=== PATIENT | male | born 1945 | race Caucasian/White ===

== ENCOUNTER 2021-01-13 12:34 | Emergency (ER) | payer MEDICARE, BC ==
[~2021-01-13] VITALS: Ht 170.2 cm; Wt 81.7 kg
[~2021-01-13 12:34] MED LIST: ADULT LOW DOSE81 MG PO; AMLODIPINE BESYL5 MG PO; CIPRO500 MG PO; CLARINEX-D 121 EACH PO; DILTIAZEM 24HR240 MG PO; FLAGYL500 MG PO; FLUOXETINE HCL10 M1 PO; GEMFIBROZIL600 MG PO; HYDROXYZINE HCL25 MG PO; KEFLEX500 MG PO; LASIX20 MG PO; LISINOPRIL20 MG PO; METFORMIN HCL500 MG PO; MOTRIN600 MG PO; NORCO 5-325 TA1 EACH PO; OMEPRAZOLE20 MG PO; PERCOCET 5-3251 EACH PO; PERCOCET 7.5-31 EACH PO; PRAVACHOL20 MG PO; PROVENTIL HFA6.7 GM INH; THALITONE15 MG PO; TYLENOL325 MG PO; ZITHROMAX250 MG PO
== END 2021-01-13 16:05 | disposition home or self-care (01) ==
LOC: ED 12:34
DX: R10.32 Left lower quadrant pain (principal); E11.9 Type 2 diabetes mellitus without complications; I10 Essential (primary) hypertension; Z87.891 Personal history of nicotine dependence; Z88.8 Allergy status to other drugs, medicaments and biological substances; Z88.5 Allergy status to narcotic agent; Z79.899 Other long term (current) drug therapy; Z79.82 Long term (current) use of aspirin; Z79.84 Long term (current) use of oral hypoglycemic drugs
CPT/HCPCS: 74177; 80053; 81001; 84132; 85025; 99284-25; Q9967

== ENCOUNTER 2023-12-09 10:09 | Inpatient (IN) | payer MEDICARE, BC ==
[2023-12-09] VITALS (7 sets, daily range): BP systolic 126–157; BP diastolic 75–102
[~2023-12-09] VITALS: Ht 170.2 cm; Wt 76.9 kg
[~2023-12-09 10:09] MED LIST changes: +AMOX TR-K CLV1 EAC1 PO; +GLIMEPIRIDE1 MG PO; +LOSARTAN POTASS25 MG PO
[2023-12-09 10:39] LABS: EOSINOPHILS 0.5 % (0-6); HEMATOCRIT 49.3 % (35.0-50.0); HEMOGLOBIN 16.6 g/dL (12.0-18.0); LYMPHOCYTES 11.2 % (24-44); MCH 29.9 (27-36); MCHC 33.6 g/dl (30-36); MCV 88.8 fl (81-99); MONOCYTES 5.4 % (0-12); NEUTROPHILS 80.9 % (39-80); PLATELET COUNT 186 K/uL (140-440); RBC 5.56 M/ul (4.3-5.7)
[2023-12-09 10:55] LABS: ALBUMIN 3.6 g/dL (3.4-5.0); ALBUMIN/GLOBULIN RATIO 0.72 (1.1-2.4); ANION GAP 21.1 (7-21); BUN/CREATININE RATIO 17.83 (6.0-28.6); CALCIUM 9.9 mg/dL (8.5-10.1); CREATININE, SERUM 1.57 mg/dL (0.70-1.30); MAGNESIUM 1.8 mg/dL (1.8-2.4); POTASSIUM 3.1 mmol/L (3.5-5.1); PROTEIN, TOTAL 8.6 g/dL (6.4-8.2)
[2023-12-09] MEDS ORDERED: dilTIAZem HCL 25 MG/5 ML VIAL IV ONE (11:30)
[2023-12-09] MEDS ORDERED: MAGNESIUM SULFATE 2 GM/50 ML BAG IV ONE (13:00)
[2023-12-09] MEDS ORDERED: ondansetron HCL 4 MG/2 ML VIAL IV PRN (13:00)
[2023-12-09] MEDS ORDERED: DEXTROSE 50% 50 ML SYR IV PRN ×2 (13:00)
[2023-12-09] MEDS ORDERED: VANCOMYCIN HCL 125 MG CAP PO SCH (13:00)
[2023-12-09] MEDS ORDERED: IBLOOD GLUCOSE TEST STRIP 1 EA TEST XX PRN (13:00)
[2023-12-09] MEDS ORDERED: ACETAMINOPHEN 325 MG TAB PO PRN (13:00)
[2023-12-09] MEDS ORDERED: GLUCAGON,HUMAN RECOMBINANT 1 MG/ML VIAL SUB-Q PRN (13:00)
[2023-12-09] MEDS ORDERED: POTASSIUM CHLORIDE 40 MEQ,LIDOCAINE HCL 1% 40 MG in DEXTROSE 5% 500 ML IV ONE (13:00)
[2023-12-09] MEDS ORDERED: DEXTROSE 5% 1,000 ML IV PRN (13:00)
[2023-12-09] MEDS ORDERED: PROCHLORPERAZINE EDISYLATE 10 MG/2 ML VIAL IV PRN (13:00)
--- NOTE | 2023-12-09 13:20 | NUR ---
78 YEAR OLD MALE PATIENT ADMITTED TO CCU FROM ED VIA STRETCHER UNDER DR. KWAN WITH DX OF AFIB/RVR. REPORT RECEIVED FROM ED RN. WITH PATIENT. PATIENT STATES HE HAS BEEN WITH DIARRHEA FOR THE PAST 4 DAYS. VOMITED LAST THURSDAY. UPON ADMIT PATIENT IS AWAKE AND ALERT, COOPERATIVE ON ADMIT. DENIES PAIN. SLIGHT NAUSEA. STATES HE HAS BEEN HAVING INTERMITTENT CHILLS FOR THE PAST 4 DAYS WELL.
--- NOTE | 2023-12-09 14:00 | NUR ---
C/O CHILLING. TEMP-99.2 WILL CONTINUE TO MONITOR. HR 100-115, REMAINS IN AFIB. FAMILY MEMBERS ARE IN ROOM.
[2023-12-09] MEDS ORDERED: TAMSULOSIN HCL0.4 MG PO (14:41)
[2023-12-09] MEDS ORDERED: METFORMIN HCL500 M1 PO (14:41)
[2023-12-09] MEDS ORDERED: FLUOXETINE HCL10 MG PO (14:43)
[2023-12-09] MEDS ORDERED: ATORVASTATIN CA40 MG PO (14:46)
--- NOTE | 2023-12-09 15:00 | NUR ---
UP TO COMMODE TO EXPELL LIQUID GREEN STOOL, 120 ML. STOOL SENT TO LAB. LEGS MOTTLED. PATIENT DENIES SHORTNESS OF BREATH, BP-138/81. HR WITH MOVEMENT UP TO 130 FROM 100 AT REST. DENIES PAIN. BACK TO BED W/O INCIDENT.
--- NOTE | 2023-12-09 16:15 | NUR ---
DR. KWAN HERE TO SEE PATIENT. LEGS ARE NOT MOTTLED AT THIS TIME. DENIES PAIN. TAKING WATER. NO VOMITING.
--- NOTE | 2023-12-09 16:30 | NUR ---
ASSESSMENT DONE. K RIDER INFUSING. IS RESTING. IS NOW IN ISOLATION PRECAUTIONS. THIS EXPLAINED TO PATIENT AND PATIENT .
--- NOTE | 2023-12-09 16:49 | NUR ---
medications reconciled using pharmacy records and interview with
[2023-12-09] MEDS ORDERED: INSULIN LISPRO 100 UNIT/ML ML SUB-Q SCH (17:00)
[2023-12-09] MEDS ORDERED: IBLOOD GLUCOSE TEST STRIP 1 EA TEST VI SCH (17:00)
--- NOTE | 2023-12-09 17:10 | NUR ---
NAPPING, WILL DO ACCUCHECK WHEN PATIENT WAKES.
--- NOTE | 2023-12-09 18:00 | NUR ---
AWAKE.ACCUCHECK 252, 5 UNITS INSULIN GIVEN. UP TO COMMODE TO EXPELL LIQUID GREEN STOOL. VERY WEEK. HR TO 140 WITH EXERTION. LEGS MOTTED WHEN SITTING ON COMMODE.
--- NOTE | 2023-12-09 18:30 | NUR ---
TOOK DINNER POOR. DENIES NAUSEA. HAS BEEN TAKING WATER WITH OUT PROBLEMS. DR. KWAN UPDATED ON PATIENT STATUS REGARDING HR, BP, RR, OUTPUT,K RIDER CONT TO INFUSE. ORDERS RECEIVED.
--- NOTE | 2023-12-09 18:50 | NUR ---
LOPRESSOR GIVEN PER ORDERS. PATIENT IS RESTING WITH HOB ELEVATE.
[2023-12-09] MEDS ORDERED: METOPROLOL TARTRATE 5 MG/5 ML VIAL IV SCH (19:00)
--- NOTE | 2023-12-09 19:02 | NUR ---
PATIENT IS NAPPING. REPORT TO NEXT SHIFT.
--- NOTE | 2023-12-09 19:30 | NUR ---
REPORT RECEIVED FROM DAY RN - PT RESTING IN BED AWAKE WITH AT SIDE. DENIES NEEDS AT THIS TIME. PLAN OF CARE FOR SHIFT REVIEWED, ALL QUESTIONS ANSWERED.
--- NOTE | 2023-12-09 20:26 | NUR ---
ASSESSMENT COMPLETE - PT NOTED TO BE TACHYPNIC WITHOUT COMPLAINTS OF SOB OR CHEST PAIN. PT SLOW TO RESPOND TO QUESTIONS. UNABLE TO COORDINATE MOVEMENTS TO GET OUT OF BED WHEN ATTEMPTING PIVOT TRANSFER TO BSC. REPORTS HE DOES NOT USE AMB AIDS AT HOME AND DISORIENTATION WITH MOVEMENT IS NEW. BED HILL PLACED. GREEN SLIMY STOOL NOTED, NO SKIN BREAKDOWN NOTED. PT REMAINS IN AFIB ON MONITOR WITH RATES 100 WHILE RESTING.
[2023-12-09] MEDS ORDERED: TAMSULOSIN HCL 0.4 MG CAP PO SCH (21:00)
[2023-12-09] MEDS ORDERED: ATORVASTATIN 40 MG TAB PO SCH (21:00)
[2023-12-09] MEDS ORDERED: ENOXAPARIN SODIUM 80 MG/0.8 ML SYR SUB-Q SCH (21:00)
--- NOTE | 2023-12-09 22:11 | NUR ---
PT INC OF STOOL IN ATTENDS, REMAINS GREEN/MUCUS CONSISTENCY WITH STRONG ODOR. INC CARE COMPELTED WITH BARRIER CREAM APPLIED. PT ABLE TO HELP ROLL SIDE TO SIDE FOR BREIF CHANGE WITH INCREASING WEAKNESS FROM LAST CHANGE. PT FALLING ASLEEP QUICKLY AND SLOW TO RESPOND WITH SOME WORD FINDING DIFFICULTY, ORIENTED X4, NO OTHER NEURO DEFICIT NOTED. BED ALARM ON, CALL LIGHT IN REACH.
--- NOTE | 2023-12-09 22:22 | EKG ---
[facility] [address] [place] [address] Signed Atrial fibrillation with rapid ventricular response Nonspecific ST and T wave abnormality Abnormal ECG When compared with ECG of 31-DEC-2021 17:04, Atrial fibrillation has replaced Sinus rhythm Vent. rate has increased BY 49 BPM Nonspecific T wave abnormality now evident in Inferior leads Nonspecific T wave abnormality, worse in Anterolateral leads Confirmed by Ronny Kwan MD () on 12/09/2023 10:22:05 PM Electronically Signed By: RONNY KWAN MD 12/09/232221 PATIENT NAME: CITLALLI MIXON Electrocardiogram DATE OF : 49 PHYSICIAN: RONNY KWAN MD REPORT #: [id number] REPORT IS CONFIDENTIAL AND NOT TO BE RELEASED WITHOUT AUTHORIZATION
[2023-12-10] VITALS (10 sets, daily range): BP systolic 103–144; BP diastolic 56–100
--- NOTE | 2023-12-10 00:46 | NUR ---
RN IN ROOM TO ADMINISTER MEDICATION, PT WAKES EASILY AND REPORTS BEING INC OF STOOL BUT UNABLE TO RECALL HOW TO USE THE CALL LIGHT. NEW ATTENDS PLACED, BARRIER CREAM APPLIED. PT ROLLED TO LEFT SIDE TO SLEEP, BED ALARM ON, CALL LIGHT IN REACH AND ABLE TO RETURN DEMONSTRATE HOW TO USE IT.
[2023-12-10 05:24] LABS: BASOPHILS 0.2 % (0-2); EOSINOPHILS 0.1 % (0-6); HEMATOCRIT 45.6 % (35.0-50.0); HEMOGLOBIN 15.7 g/dL (12.0-18.0); LYMPHOCYTES 13.3 % (24-44); MCHC 34.5 g/dl (30-36); MONOCYTES 8.1 % (0-12); NEUTROPHILS 78.3 % (39-80); PLATELET COUNT 156 K/uL (140-440); RBC 5.25 M/ul (4.3-5.7); RDW 13.9 (10.5-15.0)
[2023-12-10 05:37] LABS: ALBUMIN 3.1 g/dL (3.4-5.0); ALBUMIN/GLOBULIN RATIO 0.67 (1.1-2.4); ANION GAP 19.9 (7-21); BILIRUBIN, TOTAL 0.9 ng/dL (0.2-1.0); BUN/CREATININE RATIO 20.96 (6.0-28.6); CALCIUM 9.3 mg/dL (8.5-10.1); CREATININE, SERUM 1.24 mg/dL (0.70-1.30); MAGNESIUM 2.3 mg/dL (1.8-2.4); PHOSPHORUS, INORGANIC 2.6 mg/dL (2.5-4.9); POTASSIUM 2.9 mmol/L (3.5-5.1); PROTEIN, TOTAL 7.7 g/dL (6.4-8.2)
--- NOTE | 2023-12-10 06:33 | NUR ---
ASSESSMENT THIS MORNING UNCHANGED THROUGH NIGHT. PT WAKES EASILY WITH VOICE BUT DROWSY BETWEEN CARES AND DELAYED ANSWERING QUESTIONS WITH SOME WORD FINDING. HE IS ABLE TO ASSIST WITH TURNS IN BED BUT IS SIGNIFICANTLY WEAK. NUMEROUS LIQUID GREEN SLIMY STOOLS THROUGH NIGHT, PT INCONT OF THESE.
--- NOTE | 2023-12-10 07:15 | NUR ---
PATIENT INCONTINENT OF LIQUID STOOL. BRIEF AND CHUK REPLACED, PATIENT REPOSITIONED ONTO LEFT SIDE FOR ECHO.
--- NOTE | 2023-12-10 07:30 | NUR ---
RECIEVED REPORT FROM LICENSED CHEMICAL SPRAY TECHNICIAN NURSE. PATIENT WAS SLEEPING WHEN I CHECKED ON HIM WHILE TECH WAS DOING HIS ECHOCARDIOGRAM. WIPED DOWN SURFACES IN ROOM WITH BLEACH WIPES. WILL BE IN SOON TO DO BLOOD SUGAR CHECK AND ADMINSTER MEDICATIONS.
--- NOTE | 2023-12-10 07:45 | NUR ---
REPORT RECIEVED FROM PROGRAMMING ENGINEER RN. PATIENT RESTING IN BED AT THIS TIME. PER REPORT PATIENT HAS SLOW PROCESSING OF INFORMATION THROUGH THE NIGHT. PATIENT HAS HAD CONTINUOUS LIQUID STOOL. THIS RN AND ALLIE STUDENT RN WILL BE BE CARING FOR PATIENT.
[2023-12-10] MEDS ORDERED: POTASSIUM CHLORIDE 40 MEQ,LIDOCAINE HCL 1% 40 MG in DEXTROSE 5% 500 ML IV ONE (08:00)
[2023-12-10] MEDS ORDERED: POTASSIUM CHLORIDE 10 MEQ TABCR PO ONE ×2 (08:00→14:45)
--- NOTE | 2023-12-10 08:45 | NUR ---
PATIENT RESTING WITH EYES CLOSES, WOKE TO VOICE/TOUCH. REPOSITIONED FOR BREAKFAST. FACE AND HANDS WASHED. AND DAUGHTER IN ROOM. CALL LIGHT IN EASY REACH.
[2023-12-10] MEDS ORDERED: ENOXAPARIN SODIUM 40 MG/0.4 ML SYR SUB-Q SCH (09:00)
[2023-12-10] MEDS ORDERED: TAMSULOSIN HCL 0.4 MG CAP PO SCH (09:00)
[2023-12-10] MEDS ORDERED: ATORVASTATIN 40 MG TAB PO SCH (09:00)
[2023-12-10] MEDS ORDERED: FLUOXETINE HCL 10 MG CAP PO SCH (09:00)
[2023-12-10] MEDS ORDERED: ENOXAPARIN SODIUM 80 MG/0.8 ML SYR SUB-Q SCH (09:00)
[2023-12-10] MEDS ORDERED: ASPIRIN 81 MG TABEC PO SCH (09:00)
--- NOTE | 2023-12-10 10:57 | NUR ---
ASSISTED PATIENT TO BEDISDE COMMODE WITH WALKER. PATIENT HAD THREE LIQUID STOOLS THIS MORNING. APPLIED BARRIER CREAM. pATIENTIS NOW SITTING UP IN RECLINER WITH IN ROOM.
[2023-12-10] MEDS ORDERED: PHARMACY RENAL DOSE ADJUSTMENT 1 DOSE MISC PO SCH (12:00)
[2023-12-10 14:12] LABS: ANION GAP 18.9 (7-21); BUN/CREATININE RATIO 19.87 (6.0-28.6); CALCIUM 9.8 mg/dL (8.5-10.1); CREATININE, SERUM 1.61 mg/dL (0.70-1.30); POTASSIUM 3.9 mmol/L (3.5-5.1)
--- NOTE | 2023-12-10 14:34 | NUR ---
PER MD SAINZ STAFF MAY PLACE RECTAL TUBE D/T CONTINUOUS LIQUID STOOL. THIS RN PLACED TUBE WITH 30MLS AIR TO GREEN BEVEL. RED DEPRESSED PER INSTRUCTIONS. BLACK STEFANIE AT ANAL ENTRANCE. PATIENT TOLERATED WELL AND STATES "ILL GIVE IT A TRY". PATIENT RESTING IN BED ON HIS SIDE AND IS GOING TO TAKE A NAP AT THIS TIME. PATIENTS BACKAT THE BEDSIDE. LIGHTS TURNED DOWN. BED ALARM ON FOR PATIENTS SAFETY.
[2023-12-10] MEDS ORDERED: SODIUM CHLORIDE 0.9% 1,000 ML IV SCH (14:45)
--- NOTE | 2023-12-10 16:00 | NUR ---
UPDATED MD THAT STAFF HAVE BEEN UNABLE TO ACCOUNT FOR URINATION AMOUNT THROUGH THE SHIFT D/T PATIENTS CONTIUED INCONTINENCE. PATIENT NOW HAS A RECTAL TUBE IN PLACE. WILL MONITOR URINAL OUTPUT. PER PATIENT HAS HAS VOIDED MULTIPLE TIMES IN ATTENDS AND CAMMODE. PATIENTS AT THE BEDSIDE MOST OF THE SHIFT AND UPDATED ON PLAN OF CARE.
--- NOTE | 2023-12-10 16:00 | NUR ---
In to speak with pt and he is sitting on the commode. He requests I speak with . To room outside and completed CM assessment. Pt lives in a 1 story home with 1 step. He does not have issues getting in and out of the home. Per he did have difficulty yesterday and could not lift his foot. 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 He does not use any DME. They try to walk 2 miles per day. 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 No financial issues at this time. is aware of [employer] if help needed. She was an cg and aid for many years. They plan on pt discharging to home when cleared medically.
--- NOTE | 2023-12-10 17:02 | NUR ---
WENT TO ASSESS PATIENTS CBG AND GIVE ANTIBIOTIC AND POTASSIUM REPLACMENT. PATIENT WAS LAYING ON LEFT SIDE AND TALKING TO . REPOSITIONED CLIENT AND CHAINED BREIFS SINCE THERE WAS A LITTLE BIT OF LEAKAGE FROM RECTAL TUBE. ADDED 10ML OF AIR TO RECTAL TUBE SO TOTAL IS NOW 40 ML. GREEN BEVEL UP AND RED IS CURRENTLY DEPRESSED ON RECTAL TUBE. WILL BE IN SOON TO GIVE PATIENT DINNER TRAY AND ADMINISTER INSULIN.
--- NOTE | 2023-12-10 19:30 | NUR ---
REPORT RECEIVED AND CARE ASSUMED FROM ANTELMO PATEL. PT VSS VIA CONTINUOUS MONITOR.
--- NOTE | 2023-12-10 20:07 | NUR ---
SHIFT ASSESSMENT COMPLETE. SEE [employer] FOR DETAILS. PT DENIES PAIN AND OTHER NEEDS. PT RESTING IN BED USING PERSONAL CELLPHONE. PT VERBALIZES UNDERSTANDING TO USE CALL LIGHT WITH NEEDS. PT FOLLOWING COMMANDS AND ANSWERING ORIENTATION QUESTIONS WITH SLIGHT DELAYS IN RESPONSE TIME. PT PLEASANT AND COMMUNICATIVE. IV PATENT WITH MAINTENANCE FLUIDS INFUSING PER ORDER. FLEXISEAL IN PLACE AND DRAINING. CALLL IGHT IN REACH, PERSONAL ITEMS IN REACH. BED IN LOW, LOCKED POSITION WITH BED ALARM ON FOR PT SAFETY. VSS AND NAD NOTED VIA DIRECT OBS, PT STATEMENT AND CONTINUOUS MONITOR.
--- NOTE | 2023-12-10 20:30 | NUR ---
PT T BEDSIDE. PT RECTAL TUBE REMOVED INTAC. PT INCONTINENT WITH SEMI FORMED STOOL. LINENS, BRIEF, GOWN CHANGED. PERICARE COMPLETED WITH NEW BRIEF IN PLACE. PT DENIES ADDITIONAL NEEDS AT THIS TIME. CALL LIGHT IN REACH. BED IN LOW, LOCKED POSITION WITH BED ALARM ON. PT VSS AND NAD NOTED VIA DIRECT OBS, CONTINUOUS MONITOR AND PT STATEMENT.
--- NOTE | 2023-12-10 21:41 | NUR ---
PT USED CALL LIGHT TO CALL FOR BEDPAN. PT STATES " I ALREADY WENT, I CAN'T CONTROL IT". PT REASSURED, BED PAD, AND BRIEF CHANGED FOLLOWING VÍCTOR CARE. PT REQUESTED AND PROVIDED BED HILL FOR NEED TO HAVE ANOTHER BOWL MOVEMENT. PT CARE, CLEANING AND CHANGING COMPLETED AGAIN. PT DENIES ADDITIONAL NEEDS. CALL LIGHT IN REACH. PT DEMONSTRATES APPRORIATE USE OF CALL LIGHT. BED ALARM ON WITH BED IN LOW, LOCKED POSITION. VSS AND NAD NOTED VIA PT STATEMENT, DIRECT OBS AND CONTINUOUS MONITOR.
--- NOTE | 2023-12-10 22:06 | NUR ---
PT CALLED FOR URINAL AND BED HILL. BOTH PROVIDED. PT ABLE TO USE URINAL. PT LINENS, GOWN AND BRIEF CHANGED. VÍCTOR CARE COMPLETE. BED IN LOW, LOCKED POSITION. CALL LIGHT AND PERSONAL ITEMS IN REACH. VSS AND NAD NOTED VIA PT STATEMENT, CONTINUOUS MONITOR AND DIRECT OBS.
--- NOTE | 2023-12-10 23:04 | NUR ---
PT RESTING IN BED WITH EYES CLOSED. PT EASILY AWAKENED TO VOICE. DENIES NEEDS. CALL LIGHT IN REACH. BED IN LOW, LOCKED POSITION WITH BED ALARM ON. VSS AND NAD NOTED VIA DIRECT OBS, CONTINUOUS MONITOR AND PT STATEMENT.
[2023-12-11] VITALS (10 sets, daily range): BP systolic 121–139; BP diastolic 64–104
--- NOTE | 2023-12-11 00:05 | NUR ---
SHIFT ASSESSMENT COMPLETE. SEE [employer] FOR DETAILS. PT RESTING IN BED WITH EYES CLOSED. PT EASILY AWAKENED TO VOICE. PT DENIES NEEDS AT THIS TIME. PT VERBALIZES UNDERSTANDING TO USE CALL LIGHT WITH NEEDS. BED IN LOW, LOCKED POSITION WITH BED ALARM ON. VSS AND NAD NOTED VIA DIRECT OBS, PT STATEMENT AND CONTINUOUS MONITOR.
--- NOTE | 2023-12-11 01:41 | NUR ---
PT RESTING IN BED WITH EYES CLOSED. EASILY AWAKENED TO VOICE. PT BRIEF AND BED PAD CHANGED. PT DENIES NEEDS AT THIS TIME. CALL LIGHT IN REACH. BED ALARM ON. VSS AND NAD NOTED VIA DIRECT OBS, CONTINUOUS MONITOR AND PT STATEMENT.
--- NOTE | 2023-12-11 03:30 | NUR ---
PT REQUESTING ASSIST WITH BEDPAN. PT REMAINS INCONTINENT OF STOOL. PT USING URINAL APPROPRIATELY. PT BEDDING, GOWN AND BRIEF CHANGED. PERICARE COMPLETED. PT STOOLS ARE BROWN AND SOFT, TRANSITIONING FROM LIQUID TO SEMI FORMED. PT PROVIDED ICE WATER AND DENIES ALL ADDITIONAL NEEDS. BED IN LOW, LOCKED POSITION WITH BED ALARM ON. VSS AND NAD NOTED VIS DIRECT OBS, CONTINUOUS MONITOR AND PT STATEMENT.
--- NOTE | 2023-12-11 04:33 | NUR ---
SHIFT ASSESSMENT COMPLETE. SEE [employer] FOR DETAILS. PT RESTING IN BED WITH EYES CLOSED. EASILY AWAKENED TO VOICE. PT DENIES NEES AT THIS TIME. CALL LIGHT AND PERSONAL ITEMS IN REACH. BED IN LOW, LOCKED POSITION WITH BED ALARM ON FOR PT SAFETY. PIV PATENT AND INFUSING. VSS AND NAD NOTED VIA DIRECT OBS, PT STATEMENT AND CONTINUUS MONITOR.
[2023-12-11 05:22] LABS: BASOPHILS 0.4 % (0-2); EOSINOPHILS 0.6 % (0-6); HEMATOCRIT 41.4 % (35.0-50.0); HEMOGLOBIN 14.6 g/dL (12.0-18.0); LYMPHOCYTES 17.6 % (24-44); MCH 30.1 (27-36); MCHC 35.1 g/dl (30-36); MCV 85.6 fl (81-99); MONOCYTES 13.7 % (0-12); NEUTROPHILS 67.7 % (39-80); PLATELET COUNT 152 K/uL (140-440); RBC 4.84 M/ul (4.3-5.7); RDW 13.7 (10.5-15.0)
[2023-12-11 05:37] LABS: ALBUMIN 2.6 g/dL (3.4-5.0); ALBUMIN/GLOBULIN RATIO 0.58 (1.1-2.4); ANION GAP 18.2 (7-21); BILIRUBIN, TOTAL 0.8 ng/dL (0.2-1.0); BUN/CREATININE RATIO 22.4 (6.0-28.6); CALCIUM 9.1 mg/dL (8.5-10.1); CREATININE, SERUM 1.25 mg/dL (0.70-1.30); POTASSIUM 3.2 mmol/L (3.5-5.1); PROTEIN, TOTAL 7.1 g/dL (6.4-8.2)
--- NOTE | 2023-12-11 06:20 | NUR ---
PT BEDDING CHANGED, GOWN AND BRIEF CHANGED. VÍCTOR CARE COMPLETED. PT REQUESTED AND PROVIDED ICE WATER. PT INCONTINENT STOOL BECOMING SOFT FORMED AND BROWN. PT APPROPRIATELY USES URINAL. BED IN LOW, LOCKED POSITION WITH BED ALARM ON. CALL LIGHT IN REACH. VSS AND NAD NOTED VIA PT STATEMENT, DIRECT OBS AND CONTINUOUS MONITOR. UPON LEAVING ROOM PT REQUESTED AND PROVIDED BED HILL. PT REQUESTED A FEW MINUTES OF PRIVACY. PRIVACY GRANTED. PT VERBALIZES UNDERSTANDING TO USE CALL LIGHT WITH NEEDS.
--- NOTE | 2023-12-11 07:09 | NUR ---
PT USED CALL LIGHT FOR HYGEINE FOLLOWING CONTIENT BM AND APPROPRIATE USE OF URINAL. PAD AND BRIEF CHANGED. VÍCTOR CARE COMPLETE. PT DENIES ADDITIONAL NEEDS. CALL LIGHT AND PERSONAL ITEMS IN REACH. BED RETURNED TO LOW, LOCKED POSITION POST CARES. PT SELF REPOSITIONING. PIV PATENT WITH MAINTENANCE FLUIDS INFUSING. PT VSS AND NAD NOTED VIA DIRECT OBS, CONTINUOUS MONITOR AND PT STATEMENT.
--- NOTE | 2023-12-11 07:12 | NUR ---
REPORT GIVEN AND CARE ENDORSED TO DAYSHIFT STAFF. VSS VIA CONTINUOUS MONITOR.
[2023-12-11] MEDS ORDERED: POTASSIUM CHLORIDE 40 MEQ,LIDOCAINE HCL 1% 40 MG in DEXTROSE 5% 500 ML IV ONE (08:15)
--- NOTE | 2023-12-11 09:23 | NUR ---
ADMINISTRED MORNING MEDICATIONS TO PATIENT. PROVIDER CAME IN AND DISCUSSED PLAN OF CARE WITH PATIENT AND FAMILY. ALL QUESTIONS WERE ANSWERED AND PATIENT AND FAMILY WERE AGREEABLE TO THE PLAN OF CARE. BREAKFAST TRAY WAS REMOVED AND CLIENT IS CURRENTLY SITTING UP IN BED. STILL IN ROOM.
[2023-12-11] MEDS ORDERED: METOPROLOL SUCCINATE 25 MG TABCR PO SCH (09:30)
[2023-12-11] MEDS ORDERED: POTASSIUM CHLORIDE 10 MEQ TABCR PO ONE (09:30)
[2023-12-11 11:16] LABS: C. DIFF TOXIN B GENE TCDB,PCR Detected (())
--- NOTE | 2023-12-11 11:38 | NUR ---
CONNECTED WITH FRIEND IN CCU WAITING ROOM. PROVIDED SUPPORTIVE PRESENCE, SOCK LINING EXAMINER EDUCATION, PRAYER. FRIEND EXPRESSED GRATITUDE.
--- NOTE | 2023-12-11 11:57 | NUR ---
PT TRANSFERED TO RM 122 VIA RECLINER. PT DENIES PAIN OR NEEDS AT THIS TIME. ORIENTED TO ROOM, CALL LIGHT AND ISOLATION PRECAUTIONS. PT AND VERBALIZED UNDERSTANDING. CALL LIGHT WITHIN REACH.
[2023-12-11 14:35] LABS: ANION GAP 17.1 (7-21); BUN/CREATININE RATIO 20.76 (6.0-28.6); CALCIUM 9.2 mg/dL (8.5-10.1); CREATININE, SERUM 1.3 mg/dL (0.70-1.30); POTASSIUM 4.1 mmol/L (3.5-5.1)
--- NOTE | 2023-12-11 15:26 | NUR ---
IN PT COMES TO NURSE'S STATION REQUESTING PT BE MOVED TO BED, HE IS TIRED. PT STANDS WITH FWW AND AMBULATES WITHOUT ASSISTANCE TO BED. NEW GOWN PROVIDED. ICE WATER FRESH. CALL LIGHT IN REACH, BED ALARM ON AND BED IN LOWEST POSITION FOR PT SAFETY. NO OTHER NEEDS NOTED AT THIS TIME.
--- NOTE | 2023-12-11 16:24 | NUR ---
NURSING HOME ASSISTANT ASSISTED PATIENT FROM CHAIR TO THE BEDSIDE COMMODE, PATIENT HAD BOWEL MOVEMENT AND BLOOD WAS NOTICED IN PATIENT BRIEF BY NURSING HOME ASSISTANT. RN WAS NOTIFIED OF BLOOD IN PATIENT BRIEF. NURSING HOME ASSISTANT ASSISTED PATIENT OFF COMMODE AND BACK TO THE CHAIR. CALL LIGHT WITHIN REACH, NO FURTHER NEEDS AT THIS TIME.
--- NOTE | 2023-12-11 17:13 | NUR ---
PROVIDED EDUCATION TO PATIENT AND FAMILY REGRADING CONTACT ENTERIC PRECAUTIONS AND PREVENTION. FAMILY VERBALIZED UNDERSTANDING.
--- NOTE | 2023-12-11 19:20 | NUR ---
GOT REPORT FROM DAY SHIFT NURSE.
--- NOTE | 2023-12-11 20:32 | NUR ---
INTO CHECK ON PATIENT. PATIENT GIVEN FRESH WATER, AND NEW IV BAG HUNG. PATIENT IS GOING HOME FOR THE NIGHT. PATIENT HAS CALL LIGHT WITHIN REACH, BED IN LOW POSITION. PATIENT HAD ME TURN THE TV AND LIGHTS OFF SO HE CAN GET SOME REST. PT DENIES ANY OTHER CARES AT THIS TIME.
--- NOTE | 2023-12-11 21:13 | NUR ---
PUMP TESTER DONND PPE AND ENTERED ROOM. PUMP TESTER CHECKED PT BLOOD SUGAR, RN NOTIFIED. PUMP TESTER OBTAINED VITALS AND I&O. PT STATES NO FURTHER NEEDS AT THIS TIME. CALL LIGHT PLACED WITHIN REACH.
--- NOTE | 2023-12-11 21:39 | NUR ---
PATIENT GIVEN EVENING MEDICATIONS AND INSULIN. PATIENT LIGHTS TURNED BACK OFF AND PATIENT IS GOING TO GO BACK TO SLEEP.
--- NOTE | 2023-12-11 22:31 | NUR ---
PATIENT CALLED USING THE CALL LIGHT. PATIENT WOKE UP FROM SLEEPING AND NOTICED HE HAD A BOWEL MOVEMENT. PATIENT UP TO THE BSC AND NEW DEPENDS, GOWN, AND BED WAS CHANGED OUT AND CLEANED UP. PATIENT DOES HAVE BLOOD IN THE BSC BUT NONE WHEN WIPING PATIENT. PATIENT DOES C/O HIS STOMACH WANTING TO CRAMP.
--- NOTE | 2023-12-11 23:55 | NUR ---
PATIENT SLEEPING, REGULAR RESPIRATIONS NOTED.
--- NOTE | 2023-12-12 00:35 | NUR ---
THIS RN RESUMING CARE OF PATIENT. PATIENT RESTING IN BED WITH EYES CLOSED. RESPIRATIONS EVEN AND UNLABORED. CALL LIGHT IN REACH.
[2023-12-12 00:51] VITALS: BP 130/74
--- NOTE | 2023-12-12 01:07 | NUR ---
CALL LIGHT ANSWERED. THIS RN AND SENIOR QUALITY ANALYST DEJA TO ROOM. PATIENT REPORTS NEEDING TO HAVE BM. PATIENT UP TO BSC WITH SBA. PATIENT INCONTINENT OF STOOL IN BRIEF. PATIENT BACK TO BED. PATIENT STATES "AW MAN. I THINK I JUST WENT AGAIN IN MY PANTS". PATIENT BACK UP TO BSC WITH SBA. NEW BRIEFF, FRANCO, AND GOWN IN PLACE. PATIENT SITTING ON BSC, WITH CALL LIGHT IN REACH. THIS RN AND SENIOR QUALITY ANALYST LEFT PATIENT TO HAVE PRIVACY AND HE WAS EDUCATED TO CALL WHEN HE WAS FINSIHED HAVING BM AND READY TO GO BACK TO BED.
--- NOTE | 2023-12-12 01:46 | NUR ---
LICENSED INSURANCE AGENT AND RN DONNED PPE AND ENTERED ROOM. PT DONE ON COMMODE. LICENSED INSURANCE AGENT AND RN ASSISITED PT TO STAND, RN CLEANED PT AND APPLIED BARRIER CREAM. PT ATTENDS CHANGED AND GOWN CHANGED. PT ASSISTED BACK TO BED. PT STATES NO FURTHER NEEDS AT THIS TIME. CALL LIGHT PLACED WITHIN REACH.
--- NOTE | 2023-12-12 03:57 | NUR ---
PATIENT RESTING IN BED ON BACK WITH EYES CLOSED. RESPIRATIONS EVEN AND UNLABORED. CALL LIGHT IN REACH.
[2023-12-12 04:30] VITALS: BP 146/83
--- NOTE | 2023-12-12 04:57 | NUR ---
NOTIFIED PRIMARY RNLANEY REGARDING PT HR SUSTAINED 110'S-120'S. ANTELMO DAVISON TO REVIEW ORDERS AND NOTIFY DR. VALDES FOR PRN IF NOT ON SEP.
--- NOTE | 2023-12-12 05:00 | NUR ---
CALL LIGHT ANSWERED. PATIENT UP TO BSC TO HAVE LOOSE BROWN/BLOODY BM. PATIENT BACK TO BED AFTER VÍCTOR CARE AND BARRIER CREAM APPLIED TO BUTTOX AND SCROTUM. NEW BREIF PLACED. PATIENT HR IN LOW 100s AT REST. WHEN AMBULATING TO BSC AND BEARING DOWN TO VOID, PATIENT HR 110s-120s. VS AND I&Os OBTAINED AND RECORDED. PATIENT HAS NO FURTHER NEEDS. CALL LIGHT IN REACH.
--- NOTE | 2023-12-12 06:10 | NUR ---
MD NOTIFIED ABOUT PATIENT HR IN LOW 100s AT REST AND BETWEEN 110s-120s WITH MOVEMENT AND ON BSC. STATES "WHY ARE ARE CALLING ME ABOUT THIS? I JUST WANT TO HEAR YOUR THOUGHTS BEHIND THIS". THIS RN EXPLAINED JUST WANTED TO UPDATE AND CCU CALLED WITH CONCERNS ABOUT THE ELAVATED HR WITH MOVEMENT. NO NEW ORDERS AT THIS TIME. THIS RN CALLED MD BACK ASKING ABOUT LABS, SINCE PATIENT IS HAVING MULTIPLE LIQUID STOOL DURING THE NIGHT. NEW VERBAL LAB ORDERS. VERIFIED USING REPEAT BACK METHOD.
--- NOTE | 2023-12-12 07:07 | NUR ---
AUTOMOTIVE TECHNICIAN AND RN DONNED PPE AND ANSWERED PT CALL LIGHT. PT NEEDED TO USE BSC. AUTOMOTIVE TECHNICIAN AND RN ASSISTED PT TO BSC. RN LEFT ROOM TO GIVE REPORT. ONCE PT WAS DOONE MATT GUADARRAMA CAME IN TO ASSIST WITH STANDING PT. PT ATTENDS CHANGED AND MATT ASSISTED WITH CLEANING PT. MATT GUADARRAMA ASSISTED PT TO CHAIR. OUTPUT NOTED. PT STATES NO FURTHER NEEDS AT THIS TIME. CALL LIGHT PLACED WITHIN REACH.
[2023-12-12 07:34] LABS: EOSINOPHILS 1.8 % (0-6); HEMOGLOBIN 14.1 g/dL (12.0-18.0)
[2023-12-12 07:37] LABS: BASOPHILS 0.2 % (0-2); HEMATOCRIT 41.6 % (35.0-50.0); LYMPHOCYTES 17.9 % (24-44); MCH 29.7 (27-36); MCHC 33.9 g/dl (30-36); MCV 87.5 fl (81-99); MONOCYTES 15.6 % (0-12); NEUTROPHILS 64.5 % (39-80); PLATELET COUNT 169 K/uL (140-440); RBC 4.75 M/ul (4.3-5.7); RDW 13.9 (10.5-15.0)
[2023-12-12 07:43] LABS: ANION GAP 16.7 (7-21); BUN/CREATININE RATIO 16.81 (6.0-28.6); CALCIUM 8.7 mg/dL (8.5-10.1); CREATININE, SERUM 1.13 mg/dL (0.70-1.30); MAGNESIUM 1.8 mg/dL (1.8-2.4); POTASSIUM 3.7 mmol/L (3.5-5.1)
[2023-12-12 09:11] VITALS: BP 138/91
[2023-12-12] MEDS ORDERED: L. RHAMNOSUS GG/INULIN CAPSULE PO SCH (09:46)
--- NOTE | 2023-12-12 09:48 | NUR ---
Verbal order from Dr. Kline to admin Probiotics po once daily. Order placed at this time.
[2023-12-12 14:44] VITALS: BP 145/78
--- NOTE | 2023-12-12 16:23 | NUR ---
Patient sitting up in chair, alert and oriented x4. Patient continues to have foul smelling green/brown watery stool. Patient has been intcontinent of stool due to urgency. Patient calling staff appropriately. Iv site remains patent, fluids infusing per provider order.
--- NOTE | 2023-12-12 16:30 | NUR ---
of patient saw me, contacted household refrigerator mechanic who requested I visit her . Gave patiend words of encouragement and had prayer. Patient expressed gratefulness.
--- NOTE | 2023-12-12 16:45 | NUR ---
DAIRY MANAGEMENT SPECIALIST ASSISTED PATIENT FROM CHAIR TO COMMODE, PATIENT HAD A LIQUID BOWEL MOVEMENT. BLOOD IN PATIENTS STOOL, RN NOTIFIED BY DAIRY MANAGEMENT SPECIALIST. DAIRY MANAGEMENT SPECIALIST ASSISTED PATIENT FROM COMMODE BACK TO CHAIR. PATIENT ALSO STATED PAIN IN BACK END. RN NOTIFIED. CALL LIGHT WITHIN REACH, NO FURTHER NEEDS AT THIS TIME.
[2023-12-12 17:43] VITALS: BP 154/77
[2023-12-12 20:33] VITALS: BP 151/95
--- NOTE | 2023-12-12 20:59 | NUR ---
PT AWAKE, COOPERATIVE WITH ASSESSMENTS AND VITALS. ON ROOM AIR, ABD HWA, SOFT, NON TENDER, HAVING LIQUID STOOLS, ON C DIFF PRECAUTIONS. UP TO BSC. RED VÍCTOR AREA. BACK TO BED, NO C/O PAIN.. 1PA, IVF INFUSING, TELE#[address] SINUS TACHY, ANDREE C/O CP OR SOB. REQUESTS SQ INJESTIONS TO BE DONE HIGH IN UPPER ABD "I HAVE A MESH IN MY LOWER ABD". TEACHING DONE, SEMIRECEPTIVE. REPOSITIONS SELF IN BED, DECLINES RECTAL TUBE WHEN ASKED. " NO, I HAD ONE BEFORE" STATED. ALERT AND ORIENTED. WAS HERE EARLIER. PT IS SCHEDULED FOR DC TOMORROW.
--- NOTE | 2023-12-13 02:49 | NUR ---
reasting, eys closed, continues on contact enteric isolation c diff+. tele#[address], a fib rhythm, tachychardic up to 150bpm non sustained when up to BSC. Pulse goes back down to 130-112 when back to bed.
[2023-12-13 03:15] VITALS: BP 147/92
--- NOTE | 2023-12-13 03:36 | NUR ---
Pt used call light, incontinent of liquid bm, up to BSC, voided and had more liquid strong smelling brown-greenish colored bm. skin care, has large external hemorroids and some pinkish-red colored drainge noted when wiping. Back to bed nad inmediately sted "I need to go again. Was incontinent of large amount of liquid bm in attends. Up to BSC. Bed linen and gown changed twice
--- NOTE | 2023-12-13 04:03 | NUR ---
pt up to BSC, had liquid bm. IV came off accidentally. site intact. 2x2 to area. Pt Declnes to have IV restarted. "Matteo going home today, I dont want it" "Ill just drink plenty of water" stated. Will notify MD. skin care done, barrier cream clean attends and gown. Back to bed. tele#[address] afib, pulse 122-161 non sustained. as per tele, a fib rhythm. denies CP or SOB
--- NOTE | 2023-12-13 04:05 | NUR ---
Pt called for assistance from bedside commode back to bed. Cleaned up Pt. Pt continues to have blood in liquid stool-Notified RN. Changed Pt's gown and brief. Call light left in reach. No other needs expressed by Pt.
[2023-12-13 06:13] VITALS: BP 137/72
[2023-12-13 06:18] LABS: BASOPHILS 0.1 % (0-2); EOSINOPHILS 1.1 % (0-6); HEMATOCRIT 37.3 % (35.0-50.0); HEMOGLOBIN 12.7 g/dL (12.0-18.0); LYMPHOCYTES 16.2 % (24-44); MCH 29.4 (27-36); MCV 86.5 fl (81-99); MONOCYTES 14.6 % (0-12); PLATELET COUNT 183 K/uL (140-440); RBC 4.31 M/ul (4.3-5.7); RDW 13.9 (10.5-15.0)
[2023-12-13 06:27] LABS: ANION GAP 14.3 (7-21); BUN/CREATININE RATIO 15.05 (6.0-28.6); CALCIUM 8.7 mg/dL (8.5-10.1); CREATININE, SERUM 0.93 mg/dL (0.70-1.30); MAGNESIUM 1.6 mg/dL (1.8-2.4); POTASSIUM 3.3 mmol/L (3.5-5.1)
--- NOTE | 2023-12-13 06:30 | NUR ---
Assesed Pt's vitals. Pt had watery and bloody loose diarrhea/stool. Cleaned Pt and assisted Pt 1PA to bedside commode. Refilled water. Changed bed chucks. Left call light in reach and asked Pt to call appropriately when finished and ready to go back to bed. No other needs expressed by Pt.
--- NOTE | 2023-12-13 06:31 | NUR ---
Pt currently awake, sitting BSC, has been incontinent of and had multiple semi liquid brown mucoid bm's. on enteric precautions, c diff+. Had an IV that accidentally come off when pt was trying to remove his own gown. will be restarted. Tele#[address], afib with multiform PVC's rhythm, tristen CP or sob with exertion. pulse non sustained from 98 to 161 when up to BSC, red scrotol and carlos alberto area, barrier cream applid, external hemorroid present moist with pink to red drainage noted when wiping. Dr Kline just went through and ordered to restart IV site, toprol changed to 50mg QD po and labs were drawn, pt was cooperative. CBG 216 received 3 unts ss Insulin. Pt disapointed over not going home today. reassured
--- NOTE | 2023-12-13 07:10 | NUR ---
Pt called to get up and assist with cleaning self from bedside commode. Assisted Pt back to bed. Call light left in reach. No other needs expressed by Pt.
--- NOTE | 2023-12-13 07:28 | NUR ---
ATTEMPTED TO PLACE IV X2 WITHOUT SUCCESS. PRIMARY RN NOTIFIED.
[2023-12-13] MEDS ORDERED: MAGNESIUM SULFATE 2 GM/50 ML BAG IV ONE ×2 (07:45→11:30)
[2023-12-13] MEDS ORDERED: POTASSIUM CHLORIDE 20 MEQ,LIDOCAINE HCL 1% 20 MG in DEXTROSE 5% 250 ML IV ONE ×2 (07:45→11:15)
--- NOTE | 2023-12-13 08:29 | NUR ---
Board has been updated and call light has been placed within reach
[2023-12-13] MEDS ORDERED: METOPROLOL SUCCINATE 50 MG TABCR PO SCH (09:00)
[2023-12-13 09:33] VITALS: BP 145/78
--- NOTE | 2023-12-13 11:37 | NUR ---
PT SITTING UP IN CHAIR WATCHING IPAD. CALL LIGHT WITHIN REACH. NO REQUESTS AT THIS TIME.
[2023-12-13 14:07] VITALS: BP 134/76
--- NOTE | 2023-12-13 14:58 | NUR ---
PT HAS BEEN UP AMBLATING BACK AND FORTH FROM BED OR CHAIR TO RESTROOM TODAY, TOLERATING WELL WITH SBA. PT UP TO COMMODE NOW DUE TO URGENCY, LIQUID BM.
[2023-12-13 15:40] LABS: BUN/CREATININE RATIO 11.81 (6.0-28.6); CALCIUM 9.3 mg/dL (8.5-10.1); CREATININE, SERUM 1.1 mg/dL (0.70-1.30); MAGNESIUM 2.4 mg/dL (1.8-2.4)
--- NOTE | 2023-12-13 17:24 | NUR ---
pt sitting up in bed eating dinner with at bedside. call light wihtin reach. no requests at this time.
[2023-12-13 18:29] VITALS: BP 151/85
[2023-12-13] MEDS ORDERED: L. RHAMNOSUS GG/INULIN CAPSULE PO SCH (21:00)
--- NOTE | 2023-12-13 21:15 | NUR ---
PATIENT CALLED WANTING TO USE THE BEDSIDE COMMODE. 1PA. PATIENT WANTED TO SIT IN THE COMMODE FOR SEVERAL MINUTES. VÍCTOR WIPES/CARE ASSISTED. BARRIER CREAM APPLIED. CHANGED CHUX, PULL UP AND GOWN. PATIENT IS BACK IN BED. V/S, I&O AND BLOOD SUGAR CHECK DONE AND DOCUMENTED. FRESH ICE WATER PROVIDED. CALL LIGHT WITHIN REACH.
[2023-12-13 21:33] VITALS: BP 136/91
--- NOTE | 2023-12-13 22:26 | NUR ---
Pt was incontinent of semiliquid brown bm in attends and when up to BSC. skin care done. continues to have reddish rectal drainage when wiped. Back to bed. RA, clear lungs, HEA, soft, no c/o pain or CP, denies OSB with exertion. "Matteo feeling and doing better" stated, pleasant and cooperative, alert and oriented. IVF infusing w/o problems, no c/o adverse reaction to IV abx. Tele#[address], afib rhythm. tolerating liquids well, no c/o n/v. coop with assessments and vitals.
--- NOTE | 2023-12-14 00:21 | NUR ---
RESTING, EYES CLOSED, IVF INFUSING, CONTINUES ON ENTERIC CONTACT ISOLATION C DIFF+
[2023-12-14 02:15] VITALS: BP 142/95
--- NOTE | 2023-12-14 02:34 | NUR ---
pt was incontinent of yellow liquid bm. red scrotal sac and carlos alberto area. external hemorroids not visible at this time. no rectal prolapse noted at this time. Pt cooperative. tele#[address], afib. denies CP, cooperativ with vitals and second assessment. IVF infusing RA. Pt helped with turning and repositioning. Pleasant and cooperative, follows instructions
[2023-12-14 04:45] VITALS: BP 143/79
--- NOTE | 2023-12-14 07:43 | NUR ---
PT AWAKE AT TIME OF SHIFT REPORT. C/O HEADACHE TYLENOL ADMINISTERED. FRESH H20 TO BEDSIDE DENIES OTHER NEEDS OF.
--- NOTE | 2023-12-14 09:25 | NUR ---
PT HAS VERY LITTLE FOR MORNING MEAL REFUSES OFFER OF OTHER ITEMS. STATES HE IS NOT NORMALLY A MORNING EATER AND HAS HIS MAIN MEAL IN THE EVENING. DENIES DISCOMFORTS OR NEEDS OF. PT IS PRESENT AT BEDSIDE
[2023-12-14 09:53] VITALS: BP 129/67
--- NOTE | 2023-12-14 10:50 | NUR ---
PT TO THE SHOWER STAFF SBA. LOOSE STOOL PRIOR TO SHOWER AND THEN AGAIN AFTER. IS PRESENT IN THE ROOM. PERSONAL CARE ITEMS PROVIDED PT ABLE TO DO SELF CARES. LINENS CHANGED.
--- NOTE | 2023-12-14 12:24 | NUR ---
UR CLINICAL REVIEW: 2 MN FOR [facility] INPATIENT 12/09/23 @ 1251 NO AUTH REQUIRED DISCHARGE TO HOME WHEN STABLE
[2023-12-14 13:47] VITALS: BP 133/75
--- NOTE | 2023-12-14 14:16 | NUR ---
DR VALDES IN TO SEE PT ALL QUESTIONS ANSWERED. PT TO THE BATHROOM INCONT OF LOOSE STOOL. WASHED UP WITH SHOWER BARRIER CREAM APPLIED PT HAS A 2ND AND 3RD INCONT EPISODE BEFORE HE COULD BE CLEANED AND DRESSED. FINISHED WASHING PT BOTTOM IN THE SHOWER BARRIER CREAM APPLIED UNDERGARMENT PROVIDED. PT TO THE CHAIR. IS IN THE ROOM. EDUCATIONAL MATERIAL R/T AFIB PROVIDED QUESTIONS ANSWERED
--- NOTE | 2023-12-14 16:33 | NUR ---
PT INCONTINENT OF STOOL AGAIN STAFF ASSIST TO DO [facility].
--- NOTE | 2023-12-14 18:08 | NUR ---
PATIENT SITTING UP IN BED AT THIS TIME, VISITORS IN ROOM. PATIENT REQUESTING TO USE BATHROOM AT THIS TIME. WAREHOUSE PRODUCTION WORKER IN TO ASSIST PATIENT TO BATHROOM. CALL LIGHT IN REACH.
[2023-12-14 18:17] VITALS: BP 131/73
--- NOTE | 2023-12-14 18:44 | NUR ---
PT TO BED AFTER EVENING MEAL. DR MCCOY IN TO SEE HIM
--- NOTE | 2023-12-14 19:15 | NUR ---
REPORT RECEIVED FROM LORRIE RODRIGES. pt RESTING IN THE BED. BOARD UPDATED. CALL LIGHT WITHIN REACH.
--- NOTE | 2023-12-14 19:45 | NUR ---
NOTIFIED ANTELMO BROOKS FOR TELE BATTERY CHANGE.
[2023-12-14 21:26] VITALS: BP 145/84
--- NOTE | 2023-12-14 21:40 | NUR ---
ASSESSMENT AND VITAL SIGNS DONE. SCHEDULED MEDICATIONS ADMINISTERED. BLOOD SUGAR CHECKED, RESULTS OF 212. SS INULIN ADMINISTERED. WATER REFRESHED. pt DENIES ANY NEEDS AT THIS TIME. CALL LIGHT WITHIN REACH.
--- NOTE | 2023-12-14 23:35 | NUR ---
PATIENT CALLED STATING NEEDS HELP. WIPE/CLEANED PATIENT FROM HAVING BM. FRESH ATTEND, CHUX AND GOWN PLACED. EXPERESSED NO FURTHER NEEDS AT THIS TIME. CALL LIGHT AND SIDE TABLE WITHIN REACH.
--- NOTE | 2023-12-15 02:10 | NUR ---
pt RESTING IN THE BED WITH EYES CLOSED. RR EVEN AND UNLABORED. CALL LIGHT WITHIN REACH.
[2023-12-15 02:22] VITALS: BP 130/77
--- NOTE | 2023-12-15 04:24 | NUR ---
pt RESTING IN THE BED WITH EYES CLOSED. RR EVEN AND UNLABORED. CALL LIGHT WITHIN REACH.
[2023-12-15 04:45] VITALS: BP 130/78
--- NOTE | 2023-12-15 06:05 | NUR ---
pt RESTING IN THE BED. IV ABX INFUSING PER ORDER, SEE MAR. pt DENIES ANY OTHER NEEDS AT THIS TIME. CALL LIGHT WITHIN REACH.
--- NOTE | 2023-12-15 07:45 | NUR ---
PT REPORTS A RESTFUL NIGHT ONLY INCONT OF STOOL 2X, MUCH IMPROVED. RESTING IN BED NOW DENIES DISCOMFORTS. FRESH H20 TO BEDSIDE
[2023-12-15] MEDS ORDERED: MENTHOL/ZINC OXIDE 113 GM TUBE TOP SCH (09:00)
[2023-12-15 09:59] VITALS: BP 133/73
--- NOTE | 2023-12-15 10:50 | NUR ---
PT HAS BEEN UP IN THE CHAIR ALL MORNING HAD INCONT EPISODE 1X. BREAKFAST WELL TOLERATED. DR VALDES IN TO SEE HIM PLANS TO DC LATER IF LABS ARE GOOD. PT STATES HE IS ANXIOUS TO GO HOME. DENIES NEEDS OR CONCERNS
--- NOTE | 2023-12-15 11:27 | NUR ---
P/T IN TO WORK WITH PT
[2023-12-15] MEDS ORDERED: metroNIDAZOLE 250 MG TAB PO SCH (12:00)
--- NOTE | 2023-12-15 13:13 | NUR ---
PT UP TO THE TOILET WITH LOOSE STOOL. APPEARS TO HAVE A LITTLE MORE CONTROL TODAY, STILL INCONT BUT NOT EXPLOSIVE. PT AGREES HE FEELS MUCH BETTER. ANTICIPATES DC TODAY DENIES CONCERNS OR QUESTIONS.
[2023-12-15 13:45] VITALS: BP 134/74
--- NOTE | 2023-12-15 14:26 | NUR ---
PT CONTINUES UP IN THE CHAIR PRESENT IN THE ROOM. LABS TO BE DRAWN AT 1430 PENDING POSSIBLE DC. PT DENIES DISCOMFORTS OR NEEDS OF
--- NOTE | 2023-12-15 14:27 | CONS ---
[facility] [address], [place] [address] Signed DATE OF CONSULTATION: 12/14/2023 TIME: 7 p.m. CONSULTING PHYSICIAN: Gage Mccoy M.D. REQUESTING PHYSICIAN: Dr. Kline PROBLEM: Presumed rectal prolapse. Treatment currently for profound Clostridium difficile diarrhea. HISTORY OF PRESENT ILLNESS: This 78-year-old white man was admitted by Dr. Le on December 09, 2023 as presenting through the emergency room with considerable diarrhea, nausea and vomiting and atrial fibrillation with rapid ventricular response. He was subsequently found to have C difficile, which likely accounts for his profound diarrhea problem. He had at least 13 bowel movements yesterday alone. He has been found to have a regimen that is now working, previously vancomycin orally, but intravenous Flagyl added to his regimen has now provided for much better control. He was noted to have rectal prolapse by his care team including concentric prolapse of rectal mucosa. I am consulted on that basis. The patient is known to me from the past having undergone colonoscopy in December of 2021, two years ago essentially, which showed no evidence of rectal prolapse, only diverticulosis, which was rather extensive. The patient has had no significant rectal bleeding, but there has been some blood per rectum. His hematocrit has remained stable with a hematocrit today of 37.3, yesterday of 41.6. Platelet count is normal at 183,000 yesterday. PAST MEDICAL HISTORY: Notable for chronic recurrent left lower abdominal hernia ultimately repaired at [facility] with a bilateral extensive mesh implantation. This included operative intervention by me for recurrent right inguinal hernia, probably 10 years ago or more. SOCIAL HISTORY: He is . He generally likes to play the [employer] (possibly accounting for his recurrent herniation in the past) and is accompanied by his who is supportive of Electronically Signed By: GAGE MCCOY MD 12/15/23 1427 PATIENT NAME: CITLALLI MIXON CONSULTATION DATE OF : 49 REPORT #: [id number] PHYSICIAN: GAGE MCCOY MD PCP: RONNY ORTIZ MD REPORT IS CONFIDENTIAL AND NOT TO BE RELEASED WITHOUT AUTHORIZATION [facility] [address], [place] [address] Signed him at this time. REVIEW OF SYSTEMS: He denies any shortness of breath or chest pain currently. He did have atrial fibrillation with RVR at admission. He had two minimal emesis of dark material, though not assuredly blood. He has had some minimal rectal bleeding with his profound diarrhea. He does complain of excoriation of the skin around the perianal area. PHYSICAL EXAMINATION: GENERAL: Pleasant white man who does not look systemically toxic at this time. VITAL SIGNS: Temperature is 97.9, pulse 86, blood pressure 113/73. NECK: Trachea is midline. He is bearded. ABDOMEN: Rather distended, but soft and absolutely nontender. CHEST: Clear without wheeze or rhonchi. HEART: Regular without murmur. ABDOMEN: Lateral examination left side down shows no evidence of rectal or hemorrhoidal prolapse at this time. There is some excoriation of soft tissue around the perianal area, however. EXTREMITIES: Show no clubbing, cyanosis, or edema. LAB STUDIES: Today shows a white count of 5.3, hematocrit 37.3, platelets 183,000 Chem profile previously showing a sodium of 133, now 136. Creatinine at admission 1.57, currently 1.10. IMAGING STUDIES: Shows abdominal x-ray on December 10, showing a normal abdomen without sign of distention or ileus. Chest x-ray from December 08, showed low lung volumes and atelectasis in the lung bases. ASSESSMENT: The patient has had serology confirmed Clostridium difficile diarrheal illness, which has been profound and now coming under control with oral vancomycin and IV Flagyl. He has had concurrent rectal prolapse, which though distressing in its appearance has not become incarcerated and currently is not protruding at this time. No doubt his excessive and repeated bowel movements at least 13 times yesterday alone would account for straining and prolapse for which reduction would be necessary and ultimately definitive therapy considered. The methods of repair of a rectal prolapse include low anterior resection as well as an Altemeier procedure (perineal proctectomy). The latter is certainly a possibility, however, in most cases such an intervention is for those who are unable to adequately Electronically Signed By: GAGE MCCOY MD 12/15/23 1427 PATIENT NAME: CITLALLI MIXON CONSULTATION DATE OF : 49 REPORT #: [id number] PHYSICIAN: GAGE MCCOY MD PCP: RONNY ORTIZ MD REPORT IS CONFIDENTIAL AND NOT TO BE RELEASED WITHOUT AUTHORIZATION [address] [address] Signed take a general anesthetic, which is unlikely in his case. He certainly likely could take a general anesthetic and have a low anterior resection as part of his treatment plan. There will be no intervention whatsoever at this time under the situation of his treatment for Clostridium difficile. Quite notably, he and his deny that he had antecedent antibiotics in recent times and therefore the underlying Clostridium difficile problem is enigmatic in its origin at least at this point. I would recommend Calmoseptine perianal ointment to the area, which will help with excoriation which is noted so as to avoid secondary infection and to improve comfort. MD MOE Downey/KEVIN /[id number] Copies: ~ Electronically Signed By: GAGE MCCOY MD 12/15/23 1427 PATIENT NAME: CITLALLI MIXON CONSULTATION DATE OF : 49 REPORT #: [id number] PHYSICIAN: GAGE MCCOY MD PCP: RONNY ORTIZ MD REPORT IS CONFIDENTIAL AND NOT TO BE RELEASED WITHOUT AUTHORIZATION
[2023-12-15 14:40] LABS: BASOPHILS 0.4 % (0-2); EOSINOPHILS 2.1 % (0-6); HEMATOCRIT 37.4 % (35.0-50.0); HEMOGLOBIN 12.7 g/dL (12.0-18.0); MCH 29.4 (27-36); MCHC 34.1 g/dl (30-36); MCV 86.3 fl (81-99); MONOCYTES 12.9 % (0-12); NEUTROPHILS 65.6 % (39-80); PLATELET COUNT 304 K/uL (140-440); RBC 4.34 M/ul (4.3-5.7)
[2023-12-15 14:49] LABS: ANION GAP 15.3 (7-21); BUN/CREATININE RATIO 10.67 (6.0-28.6); CALCIUM 8.6 mg/dL (8.5-10.1); CREATININE, SERUM 1.03 mg/dL (0.70-1.30); POTASSIUM 3.3 mmol/L (3.5-5.1)
[2023-12-15] MEDS ORDERED: POTASSIUM CHLORIDE 10 MEQ TABCR PO ONE (15:30)
[2023-12-15] MEDS ORDERED: METRONIDAZOLE250 MG PO (15:31)
[2023-12-15] MEDS ORDERED: VANCOMYCIN HCL125 MG PO (15:31)
[2023-12-15] MEDS ORDERED: MAGNESIUM SULFATE 1 GM in DEXTROSE 5% 100 ML IV ONE (16:00)
--- NOTE | 2023-12-15 16:20 | NUR ---
ADMINISTERED SCHEDULED MEDS, EDUCATED PT AND ON MEDS AND CURRENT CONDITION.
== END 2023-12-15 17:30 | disposition home or self-care (01) | DRG 372 ==
LOC: ED 10:09 → CCU 10:11 → MS 12-10 09:59 → CCU 12-10 09:59 → MS 12-11 11:30
PROVIDERS: Emergency Medicine; Internal Medicine; ADMIT Family Medicine; ATTEND Family Medicine
DX: A04.72 Enterocolitis due to Clostridium difficile, not specified as recurrent (principal); N17.9 Acute kidney failure, unspecified; I48.91 Unspecified atrial fibrillation; E11.9 Type 2 diabetes mellitus without complications; E87.6 Hypokalemia; E83.42 Hypomagnesemia; K62.3 Rectal prolapse; I10 Essential (primary) hypertension; Z87.891 Personal history of nicotine dependence; Z98.890 Other specified postprocedural states; Z87.19 Personal history of other diseases of the digestive system; Z95.2 Presence of prosthetic heart valve; Z88.8 Allergy status to other drugs, medicaments and biological substances; Z79.82 Long term (current) use of aspirin; Z79.899 Other long term (current) drug therapy; Z79.84 Long term (current) use of oral hypoglycemic drugs; Z79.01 Long term (current) use of anticoagulants
CPT/HCPCS: 36415; 71045; 74019; 80048; 80053; 83735; 84100; 84484; 85025; 87493; 93005; 93010; 93306; 96372; 96374; 96375; 96376; 97110; 97116; 97162; 97166; 97530; 99285-25; A9270; G0378; J1650; J1815; J3475; J3480; J3490; J7030; J7060

== ENCOUNTER 2024-05-12 14:29 | Emergency (ER) | payer MEDICARE, BC ==
[~2024-05-12] VITALS: Ht 170.2 cm; Wt 78.6 kg
[~2024-05-12 14:29] MED LIST changes: +ATORVASTATIN CA40 MG PO; +FLUOXETINE HCL10 MG PO; +METFORMIN HCL500 M1 PO; +METRONIDAZOLE250 MG PO; +TAMSULOSIN HCL0.4 MG PO; +VANCOMYCIN HCL125 MG PO
[2024-05-12] MEDS ORDERED: ELIQUIS5 MG PO (14:55)
[2024-05-12] MEDS ORDERED: SODIUM CHLORIDE 0.9% 500 ML IV PRN (15:00)
[2024-05-12] MEDS ORDERED: HYDROmorphone HCL 1 MG/ML SYR IV PRN (15:00)
[2024-05-12 15:15] LABS: BASOPHILS 0.6 % (0-2); EOSINOPHILS 1.5 % (0-6); HEMATOCRIT 42.6 % (35.0-50.0); HEMOGLOBIN 14.4 g/dL (12.0-18.0); MCH 29.9 (27-36); MCHC 33.8 g/dl (30-36); MCV 88.6 fl (81-99); MONOCYTES 8.8 % (0-12); NEUTROPHILS 73.1 % (39-80); PLATELET COUNT 365 K/uL (140-440); RBC 4.81 M/ul (4.3-5.7); RDW 14.2 (10.5-15.0)
[2024-05-12 15:32] LABS: ALBUMIN 3.6 g/dL (3.4-5.0); ALBUMIN/GLOBULIN RATIO 0.84 (1.1-2.4); ANION GAP 15.1 (7-21); BILIRUBIN, TOTAL 0.6 ng/dL (0.2-1.0); BUN/CREATININE RATIO 14.28 (6.0-28.6); CALCIUM 9.4 mg/dL (8.5-10.1); CREATININE, SERUM 1.12 mg/dL (0.70-1.30); POTASSIUM 4.1 mmol/L (3.5-5.1); PROTEIN, TOTAL 7.9 g/dL (6.4-8.2)
[2024-05-12 16:32] LABS: BILIRUBIN, URINE NEGATIVE (negative); BLOOD/HGB, URINE NEGATIVE (Negative); KETONE, URINE NEGATIVE (Negative); LEUK ESTERASE, URINE NEGATIVE (negative); NITRITE, URINE NEGATIVE (negative); PH, URINE 5.5 (5-7)
[2024-05-12] MEDS ORDERED: HYDROCODON-ACE1 EA10 PO (16:54)
[2024-05-12 17:00] VITALS: BP 170/97
== END 2024-05-12 17:00 | disposition home or self-care (01) ==
LOC: ED 14:29
PROVIDERS: Emergency Medicine
DX: R10.31 Right lower quadrant pain (principal); K80.20 Calculus of gallbladder without cholecystitis without obstruction; K57.30 Diverticulosis of large intestine without perforation or abscess without bleeding; E11.9 Type 2 diabetes mellitus without complications; I10 Essential (primary) hypertension; Z87.891 Personal history of nicotine dependence; Z88.8 Allergy status to other drugs, medicaments and biological substances; Z88.5 Allergy status to narcotic agent; Z79.01 Long term (current) use of anticoagulants; Z79.84 Long term (current) use of oral hypoglycemic drugs; Z79.899 Other long term (current) drug therapy
CPT/HCPCS: 36415; 74177; 80053; 81003; 85025; 96376; 99284-25; J7040; Q9967

== ENCOUNTER 2024-08-26 16:51 | Emergency (ER) | payer MEDICARE, BC ==
[~2024-08-26] VITALS: Ht 170.2 cm; Wt 81.6 kg
[~2024-08-26 16:51] MED LIST changes: +ELIQUIS5 MG PO; +HYDROCODON-ACE1 EA10 PO
[2024-08-26 17:15] LABS: BASOPHILS 0.8 % (0-2); EOSINOPHILS 2.1 % (0-6); HEMATOCRIT 43.8 % (35.0-50.0); HEMOGLOBIN 14.9 g/dL (12.0-18.0); LYMPHOCYTES 18.2 % (24-44); MCH 29.8 (27-36); MCHC 34.1 g/dl (30-36); MCV 87.4 fl (81-99); MONOCYTES 8.8 % (0-12); NEUTROPHILS 70.1 % (39-80); PLATELET COUNT 410 K/uL (140-440); RBC 5.01 M/ul (4.3-5.7); RDW 14.2 (10.5-15.0)
[2024-08-26 17:38] LABS: ALBUMIN/GLOBULIN RATIO 0.85 (1.1-2.4); ANION GAP 15.1 (7-21); BILIRUBIN, TOTAL 0.4 ng/dL (0.2-1.0); CALCIUM 10.5 mg/dL (8.5-10.1); CREATININE, SERUM 1.1 mg/dL (0.70-1.30); POTASSIUM 4.1 mmol/L (3.5-5.1); PROTEIN, TOTAL 8.7 g/dL (6.4-8.2)
[2024-08-26] MEDS ORDERED: HYDROCODON-ACE1 EA10 PO (18:30)
[2024-08-26 19:12] VITALS: BP 168/113
[2024-08-26] MEDS ORDERED: HYDROCODONE BIT/ACETAMINOPHEN 5/325 MG 1 TAB HOME.PACK PO ONE (19:15)
--- NOTE | 2024-08-26 21:54 | EKG ---
[facility] [address] [facility] [place] [address] Signed Atrial flutter with variable AV block with premature ventricular or aberrantly conducted complexes Abnormal ECG When compared with ECG of 09-DEC-2023 10:33, Atrial flutter has replaced Atrial fibrillation Nonspecific T wave abnormality, improved in Inferior leads Nonspecific T wave abnormality no longer evident in Lateral leads Confirmed by Teodoro Hill DO ([id number]) on 08/26/2024 9:53:42 PM Electronically Signed By: TEODORO HILL DO [id number] PATIENT NAME: CITLALLI MIXON Electrocardiogram DATE OF : 49 PHYSICIAN: TEODORO HILL DO REPORT #: [id number] REPORT IS CONFIDENTIAL AND NOT TO BE RELEASED WITHOUT AUTHORIZATION
== END 2024-08-26 18:55 | disposition home or self-care (01) ==
LOC: ED 16:51
PROVIDERS: Emergency Medicine
DX: C79.51 Secondary malignant neoplasm of bone (principal); I10 Essential (primary) hypertension; E11.9 Type 2 diabetes mellitus without complications; Z87.891 Personal history of nicotine dependence; Z88.5 Allergy status to narcotic agent; Z88.8 Allergy status to other drugs, medicaments and biological substances; Z79.84 Long term (current) use of oral hypoglycemic drugs; Z79.899 Other long term (current) drug therapy
CPT/HCPCS: 36415; 71260; 80053; 83690; 83880; 84484; 85025; 93005; 93010; 99284-25; A9270; Q9967

== ENCOUNTER 2025-04-27 12:09 | Emergency (ER) | payer OTHER, MEDICARE, BC ==
[~2025-04-27] VITALS: Ht 167.6 cm; Wt 81.0 kg
[~2025-04-27 12:09] MED LIST changes: -GLIMEPIRIDE1 MG PO; +GLIMEPIRIDE4 MG PO; +MULTIPLE VITAM1 EAC2 PO
[2025-04-27 15:10] VITALS: BP 149/90
== END 2025-04-27 15:11 | disposition home or self-care (01) ==
LOC: ED 12:09
DX: S00.81XA Abrasion of other part of head, initial encounter (principal); M54.2 Cervicalgia; S80.211A Abrasion, right knee, initial encounter; S60.511A Abrasion of right hand, initial encounter; E11.9 Type 2 diabetes mellitus without complications; I10 Essential (primary) hypertension; I48.0 Paroxysmal atrial fibrillation; Z87.891 Personal history of nicotine dependence; Z88.8 Allergy status to other drugs, medicaments and biological substances; Z88.5 Allergy status to narcotic agent; Z79.84 Long term (current) use of oral hypoglycemic drugs; Z79.82 Long term (current) use of aspirin; Z79.899 Other long term (current) drug therapy; W01.0XXA Fall on same level from slipping, tripping and stumbling without subsequent striking against object, initial encounter
CPT/HCPCS: 70450; 72125; 99284-25